=== PATIENT | male | born 1970 | race African-American/Black ===

== ENCOUNTER 2016-11-02 10:25 | Emergency (ER) | payer OTHER ==
[~2016-11-02] VITALS: Ht 172.7 cm; Wt 73.6 kg
[2016-11-02 14:20] LABS: BILIRUBIN NEGATIVE; BLOOD NEGATIVE; COLOR YELLOW ((YELLOW)); GLUCOSE (STRIP) NEGATIVE; KETONES NEGATIVE; LEUKOCYTES NEGATIVE; NITRITE NEGATIVE; PH, URINE 6.5 (5-8); PROTEIN (STRIP) NEGATIVE; SPECIFIC GRAVITY 1.026 (1.000-1.030); UROBILINOGEN 0.2 MG/DL (0.2-1.0)
[2016-11-02 14:25] LABS: ADD MIUA? NO
[2016-11-02] MEDS ORDERED: MOTRIN600 MG PO (15:07)
[2016-11-02 15:21] VITALS: BP 115/72
== END 2016-11-02 15:22 | disposition home or self-care (01) ==
LOC: EME 10:25
PROVIDERS: Physician Assistant
DX: M54.5 Low back pain (principal); K40.90 Unilateral inguinal hernia, without obstruction or gangrene, not specified as recurrent
CPT/HCPCS: 72100; 81003; 99281; 99283

== ENCOUNTER 2016-11-19 22:46 | Emergency (ER) | payer OTHER ==
[~2016-11-19] VITALS: Ht 172.7 cm; Wt 75.3 kg
[~2016-11-19 22:46] MED LIST: MOTRIN600 MG PO
[2016-11-20] MEDS ORDERED: NORCO 5/3251 TABLET PO (00:16)
[2016-11-20] MEDS ORDERED: PEN-VEE K,VEET500 MG PO (00:16)
[2016-11-20] MEDS ORDERED: PERIDEX1 ML MM (00:17)
[2016-11-20] MEDS ORDERED: MOTRIN600 MG PO (00:30)
[2016-11-20 00:36] VITALS: BP 125/90
== END 2016-11-20 00:37 | disposition home or self-care (01) ==
LOC: RME 22:46 → EME 22:46 → RME 11-20 00:37
PROC: 3E0T3BZ Introduction of Anesthetic Agent into Peripheral Nerves and Plexi, Percutaneous Approach (ICD-10-PCS; principal; 2016-11-19)
DX: K08.89 Other specified disorders of teeth and supporting structures (principal)
CPT/HCPCS: 99281; 99284